=== PATIENT | female | born 1980 | race Caucasian/White ===

== ENCOUNTER 2019-10-24 01:43 | Emergency (ER) | payer MEDICAID ==
[~2019-10-24] VITALS: Ht 160 cm; Wt 78.5 kg
[2019-10-24 02:04] VITALS: Ht 160 cm; Wt 78.5 kg
[2019-10-24 05:50] VITALS: BP 127/81
[2019-10-25 06:10] LABS: RAPID PLASMA REAGIN Non Reactive (Non Reactive)
== END 2019-10-24 05:50 | disposition home or self-care (01) ==
LOC: ED 01:43
PROVIDERS: Emergency Medicine
DX: N93.9 Abnormal uterine and vaginal bleeding, unspecified (principal); N39.0 Urinary tract infection, site not specified; Z88.1 Allergy status to other antibiotic agents; Z88.2 Allergy status to sulfonamides
CPT/HCPCS: 36415; 87491; 87591